=== PATIENT | female | born 2000 | race Caucasian/White ===

== ENCOUNTER 2019-05-09 15:56 | Emergency (ER) | payer OTHER ==
[~2019-05-09] VITALS: Wt 110.9 kg
[2019-05-09 17:51] VITALS: BP 132/81
== END 2019-05-09 17:03 | disposition home or self-care (01) ==
LOC: ED 15:56
DX: S20.219A Contusion of unspecified front wall of thorax, initial encounter (principal); V43.52XA Car driver injured in collision with other type car in traffic accident, initial encounter